=== PATIENT | male | born 1990 | race Caucasian/White ===

== ENCOUNTER 2017-07-04 00:12 | Inpatient (IN) | payer OTHER ==
[2017-07-04 01:08] LABS: ADD MAN DIFF? NO
[2017-07-04 01:11] LABS: ABNORMAL IP MESSAGE 1; BASOPHIL # 0.2 10^3/ul (0.0-0.1); BASOPHILS % 0.9 % (0.0-2.0); HEMATOCRIT 42.9 % (42.0-52.0); HEMOGLOBIN 14.1 g/dl (14.0-18.0); LYMPHOCYTES # 0.5 10^3/ul (0.8-2.9); MEAN CORPUSCULAR HEMOGLOBIN 28.4 pg (29.0-33.0); MEAN CORPUSCULAR HGB CONC 32.9 g/dl (32.0-37.0); MEAN CORPUSCULAR VOLUME 86.5 fl (82.0-101.0); MONOCYTE # 0.2 10^3/ul (0.3-0.9); MONOCYTES % 1.1 % (0.0-11.0); NEUTROPHIL # 15.1 10^3/ul (1.6-7.5); PLATELET COUNT 251 10^3/UL (140-415); POSITIVE DIFF @See below; RED BLOOD COUNT 4.96 10^6/ul (4.70-6.10); RED CELL DISTRIBUTION WIDTH 12.6 % (11.5-14.5)
[2017-07-04] MEDS: SODIUM CHLORIDE 0.9% 1L BAG IV* (01:14)
[2017-07-04] MEDS: LEVOFLOXACIN 750MG/D5W (PMX) 150 ML IVPB (01:14)
[2017-07-04 01:26] LABS: AADO2 Arterial 140.6 mmHg (7.0-24.0); Allen Test ACCEPTAB; Arterial Base Excess -2.3 mmol/L (-3.0-3); Arterial Blood Gas Oxygen Sat 91.2 mmHG (95.0-98.0); Arterial HCO3 20.6 mmol/L (22.0-26.0); Arterial MetHb 0.3 % (0.0-1.5); Arterial Total Hemglobin 14.6 g/dl (12.0-18.0); Arterial pCO2 30.6 mmhg (35-45); MODE NASAL CANNULA; Site Left Radial
[2017-07-04] MEDS: LEVALBUTEROL (NEB) 1.25 MG/0.5 ML AMP HHN (01:28)
[2017-07-04] MEDS: IPRATROPIUM (NEB) 0.5 MG/2.5 ML AMP HHN (01:28)
[2017-07-04 01:30] LABS: NEUTROPHILS % 94.7 % (39.0-77.0)
[2017-07-04 01:31] LABS: INR 1.63; PARTIAL THROMBOPLASTIN TIME 29.4 Sec (25.0-35.0); PROTIME 19.7 Sec (11.9-14.9); PT RATIO 1.5
[2017-07-04 01:35] LABS: ALANINE AMINOTRANSFERASE 23 IU/L (13-69); ALBUMIN 3.3 g/dl (3.3-4.9); ALBUMIN/GLOBULIN RATIO 1.37; ALKALINE PHOSPHATASE 56 IU/L (42-121); ANION GAP 13 (8-16); ASPARTATE AMINO TRANSFERASE 14 IU/L (15-46); BLOOD UREA NITROGEN 18 mg/dl (7-20); CALCIUM 8.5 mg/dl (8.4-10.2); CARBON DIOXIDE 29 mmol/L (21-31); CHLORIDE 95 mmol/L (97-110); CREATININE 0.79 mg/dl (0.61-1.24); GLUCOSE 123 mg/dl (70-220); POTASSIUM 5.3 mmol/L (3.5-5.1); SODIUM 132 mmol/L (135-144); TOTAL PROTEIN 5.7 g/dl (6.1-8.1)
[2017-07-04 01:50] LABS: TROPONIN-I < 0.012 ng/ml (0.000-0.120)
[2017-07-04 01:51] LABS: LACTIC ACID 3.4 mmol/L (0.5-2.0)
[2017-07-04] MEDS: morphine 4 MG/ML VIAL IV (02:06)
[2017-07-04 03:33] LABS: LACTIC ACID 1.8 mmol/L (0.5-2.0)
[2017-07-04 06:24] LABS: LACTIC ACID 2.3 mmol/L (0.5-2.0)
[2017-07-04] MEDS ORDERED: NACL 0.9% 3 ML SYG IV (07:00)
[2017-07-04] MEDS ORDERED: ONDANSETRON 4 MG INJ IV (07:00)
[2017-07-04] MEDS: morphine 2 MG INJ IV (07:31)
[2017-07-04] MEDS: LEVOFLOXACIN 500MG/D5W (PMX) 100 ML IVPB (07:31)
[2017-07-04] MEDS: ALBUTEROL/IPRATROPIUM (NEB) 3 ML AMP HHN ×3 (07:36→22:08)
[2017-07-04] MEDS: METHYLPREDNISOLONE 125 MG INJ IV ×2 (08:10→20:47)
[2017-07-04] MEDS: ENOXAPARIN 40 MG/0.4 ML SYG SC (08:13)
[2017-07-04 09:09] LABS: CREATINE KINASE 25 IU/L (23-200)
[2017-07-04 09:20] LABS: CK INDEX 1.7
[2017-07-04 09:24] LABS: CK-MB 0.42 ng/ml (0.0-2.4); TROPONIN-I < 0.012 ng/ml (0.000-0.120)
[2017-07-04 13:40] LABS: ADD UMIC NO; UR ASCORBIC ACID NEGATIVE (NEGATIVE); UR BILIRUBIN (Dip) NEGATIVE (NEGATIVE); UR BLOOD (Dip) NEGATIVE (NEGATIVE); UR CLARITY CLEAR (CLEAR); UR COLOR STRAW (YELLOW); UR GLUCOSE (Dip) NEGATIVE (NEGATIVE); UR KETONES (Dip) NEGATIVE (NEGATIVE); UR LEUKOCYTE ESTERASE (Dip) NEGATIVE Leu/ul (NEGATIVE); UR NITRITE (Dip) NEGATIVE (NEGATIVE); UR SPECIFIC GRAVITY (Dip) 1.004 (1.003-1.030); UR TOTAL PROTEIN (Dip) NEGATIVE (NEGATIVE); UR UROBILINOGEN (Dip) NEGATIVE (NEGATIVE)
[2017-07-04 14:41] LABS: CREATINE KINASE 25 IU/L (23-200)
[2017-07-04] MEDS: FUROSEMIDE 40 MG INJ IV (14:43)
[2017-07-04 14:46] LABS: LACTIC ACID 2.3 mmol/L (0.5-2.0)
[2017-07-04 14:54] LABS: CK INDEX 1.6
[2017-07-04] MEDS ORDERED: VANCOMYCIN IV PER PHARMACY XX (15:00)
[2017-07-04 15:02] LABS: TROPONIN-I < 0.012 ng/ml (0.000-0.120)
[2017-07-04] MEDS: CEFEPIME 2GM/50 ML (PMX) 50 ML IVPB ×2 (15:35→23:00)
[2017-07-04] MEDS: VANCOMYCIN 2 GM in SOD CHLORIDE 0.9% 500 ML IVPB (16:07)
[2017-07-04] MEDS: SALMETEROL/FLUTICASONE 250/50 INHA INH (20:47)
[2017-07-04 21:20] LABS: Allen Test ACCEPTAB; Arterial Base Excess -3.9 mmol/L (-3.0-3); Arterial Blood Gas Oxygen Sat 97.6 mmHG (95.0-98.0); Arterial COHb 0.3 % (0.0-3.0); Arterial Fraction of Oxyhgb 97.1 % (93.0-99.0); Arterial HCO3 19.7 mmol/L (22.0-26.0); Arterial MetHb 0.2 % (0.0-1.5); Arterial Total Hemglobin 12.8 g/dl (12.0-18.0); Arterial pCO2 31.8 mmhg (35-45); MODE HFNC; Site Right Radial
[2017-07-04] MEDS: VANCOMYCIN 1.25 GM in SOD CHLORIDE 0.9% 250 ML IVPB (23:47)
[2017-07-05] MEDS: GUAIFENESIN/CODEINE 5ML CUP PO ×2 (01:00→05:27)
[2017-07-05] MEDS: ALBUTEROL/IPRATROPIUM (NEB) 3 ML AMP HHN ×6 (01:14→20:14)
[2017-07-05] MEDS: FUROSEMIDE 40 MG INJ IV ×2 (05:27→17:28)
[2017-07-05 06:03] LABS: ABNORMAL IP MESSAGE 1; HEMATOCRIT 35.9 % (42.0-52.0); MEAN CORPUSCULAR HEMOGLOBIN 28.8 pg (29.0-33.0); MEAN CORPUSCULAR HGB CONC 33.4 g/dl (32.0-37.0); MEAN CORPUSCULAR VOLUME 86.3 fl (82.0-101.0); MEAN PLATELET VOLUME 9.6 fl (7.4-10.4); PLATELET COUNT 232 10^3/UL (140-415); POSITIVE DIFF @See below; RED BLOOD COUNT 4.16 10^6/ul (4.70-6.10); RED CELL DISTRIBUTION WIDTH 12.9 % (11.5-14.5)
[2017-07-05 06:03] LABS: WHITE BLOOD COUNT 16.1 10^3/ul (4.8-10.8)
[2017-07-05 06:39] LABS: ALANINE AMINOTRANSFERASE 21 IU/L (13-69); ALBUMIN 2.9 g/dl (3.3-4.9); ALBUMIN/GLOBULIN RATIO 1.11; ALKALINE PHOSPHATASE 59 IU/L (42-121); ANION GAP 11 (8-16); ASPARTATE AMINO TRANSFERASE 13 IU/L (15-46); BILIRUBIN,INDIRECT 0.3 mg/dl (0-1.1); BILIRUBIN,TOTAL 0.3 mg/dl (0.2-1.3); BLOOD UREA NITROGEN 19 mg/dl (7-20); CALCIUM 8.2 mg/dl (8.4-10.2); CARBON DIOXIDE 25 mmol/L (21-31); CHLORIDE 108 mmol/L (97-110); CHOL/HDL RATIO 5.2 RATIO; CHOLESTEROL 95 mg/dl (100-200); CREATININE 0.75 mg/dl (0.61-1.24); GLUCOSE 141 mg/dl (70-220); HDL CHOLESTEROL 18 mg/dl (28-63); LDL CHOLESTEROL,CALCULATED 48 mg/dl; MAGNESIUM 2.1 mg/dl (1.7-2.5); POTASSIUM 4.1 mmol/L (3.5-5.1); SODIUM 140 mmol/L (135-144); TOTAL PROTEIN 5.5 g/dl (6.1-8.1); TRIGLYCERIDES 143 mg/dl (0-149)
[2017-07-05 06:46] LABS: ADD MAN DIFF? YES
[2017-07-05 06:50] LABS: THYROID STIMULATING HORMONE 0.679 MIU/L (0.465-4.680)
[2017-07-05 07:54] LABS: AADO2 Arterial 330.5 mmHg (7.0-24.0); Allen Test ACCEPTAB; Arterial Base Excess -0.3 mmol/L (-3.0-3); Arterial Blood Gas Oxygen Sat 98.6 mmHG (95.0-98.0); Arterial COHb 0.3 % (0.0-3.0); Arterial HCO3 23.4 mmol/L (22.0-26.0); Arterial MetHb 0.3 % (0.0-1.5); Arterial Total Hemglobin 12.8 g/dl (12.0-18.0); Arterial pCO2 35.4 mmhg (35-45); MODE HFNC
[2017-07-05] MEDS: VANCOMYCIN 1.25 GM in SOD CHLORIDE 0.9% 250 ML IVPB ×2 (08:07→15:56)
[2017-07-05] MEDS: SALMETEROL/FLUTICASONE 250/50 INHA INH ×2 (08:10→20:55)
[2017-07-05] MEDS: METHYLPREDNISOLONE 125 MG INJ IV ×2 (08:10→20:55)
[2017-07-05] MEDS: ENOXAPARIN 40 MG/0.4 ML SYG SC (08:12)
[2017-07-05] MEDS: CEFEPIME 2GM/50 ML (PMX) 50 ML IVPB ×2 (08:15→20:56)
[2017-07-05 08:29] LABS: HEMOGLOBIN A1C 5.4 % (0-5.9)
[2017-07-05 10:38] LABS: BAND NEUTROPHILS #M 2.5 10^3/ul (0.0-0.6); BAND NEUTROPHILS % (M) 16 % (0-4); LYMPHOCYTES # 0.5 10^3/ul (0.8-2.9); LYMPHOCYTES #M 0.4 10^3/ul (0.8-2.9); LYMPHOCYTES % (M) 3 % (15-51); MONOCYTE # 0.2 10^3/ul (0.3-0.9); MONOCYTE #M 0.1 10^3/ul (0.3-0.9); MONOCYTES % (M) 1 % (0-11); SEG NEUT #M 13.3 10^3/ul (1.7-7.5); SEGMENTED NEUTROPHILS (M) % 80 % (39-77)
[2017-07-05 11:17] LABS: ADD MAN DIFF? NO
[2017-07-05 11:18] LABS: WHITE BLOOD COUNT 14.7 10^3/ul (4.8-10.8)
[2017-07-05 11:18] LABS: ABNORMAL IP MESSAGE 1; BASOPHIL # 0.1 10^3/ul (0.0-0.1); BASOPHILS % 0.5 % (0.0-2.0); HEMATOCRIT 35.3 % (42.0-52.0); HEMOGLOBIN 11.8 g/dl (14.0-18.0); LYMPHOCYTES # 0.4 10^3/ul (0.8-2.9); LYMPHOCYTES % 2.5 % (15.0-51.0); MEAN CORPUSCULAR HEMOGLOBIN 28.6 pg (29.0-33.0); MEAN CORPUSCULAR HGB CONC 33.4 g/dl (32.0-37.0); MEAN CORPUSCULAR VOLUME 85.7 fl (82.0-101.0); MEAN PLATELET VOLUME 9.1 fl (7.4-10.4); MONOCYTE # 0.3 10^3/ul (0.3-0.9); MONOCYTES % 1.9 % (0.0-11.0); NEUTROPHIL # 13.9 10^3/ul (1.6-7.5); PLATELET COUNT 222 10^3/UL (140-415); POSITIVE DIFF @See below; RED BLOOD COUNT 4.12 10^6/ul (4.70-6.10); RED CELL DISTRIBUTION WIDTH 12.9 % (11.5-14.5)
[2017-07-05 12:15] LABS: ANION GAP 11 (8-16); BLOOD UREA NITROGEN 20 mg/dl (7-20); CALCIUM 8.2 mg/dl (8.4-10.2); CARBON DIOXIDE 26 mmol/L (21-31); CHLORIDE 107 mmol/L (97-110); CREATININE 0.75 mg/dl (0.61-1.24); GLUCOSE 157 mg/dl (70-220); POTASSIUM 4.2 mmol/L (3.5-5.1); SODIUM 140 mmol/L (135-144)
[2017-07-05 12:24] LABS: ANISOCYTOSIS 1+ (0-0); BAND NEUTROPHILS #M 4.4 10^3/ul (0.0-0.6); BAND NEUTROPHILS % (M) 30 % (0-4); LYMPHOCYTES #M 0.4 10^3/ul (0.8-2.9); LYMPHOCYTES % (M) 3 % (15-51); MICROCYTOSIS 1+ (0-0); MONOCYTE #M 0.2 10^3/ul (0.3-0.9); MONOCYTES % (M) 2 % (0-11); PLATELET ESTIMATE NORMAL; POIKILOCYTOSIS 1+ (0-0); SEG NEUT #M 10.2 10^3/ul (1.6-7.5); SEGMENTED NEUTROPHILS (M) % 65 % (39-77); SMUDGE%M 1 % (0-0)
[2017-07-05 15:45] LABS: VANCOMYCIN,TROUGH 9.4 ug/ml (10.0-20.0)
[2017-07-06] MEDS: ACETAMINOPHEN 325 MG TAB PO ×2 (00:13→19:47)
[2017-07-06] MEDS: GUAIFENESIN/CODEINE 5ML CUP PO ×2 (00:13→19:47)
[2017-07-06] MEDS: VANCOMYCIN 1.5 GM in SOD CHLORIDE 0.9% 250 ML IVPB ×3 (00:14→16:34)
[2017-07-06] MEDS: ALBUTEROL/IPRATROPIUM (NEB) 3 ML AMP HHN ×5 (01:35→19:33)
[2017-07-06] MEDS: morphine 2 MG INJ IV (02:19)
[2017-07-06] MEDS: FUROSEMIDE 40 MG INJ IV ×2 (05:54→17:55)
[2017-07-06 08:41] LABS: ADD MAN DIFF? NO
[2017-07-06 08:49] LABS: WHITE BLOOD COUNT 15.8 10^3/ul (4.8-10.8)
[2017-07-06 08:49] LABS: BASOPHILS % 0.3 % (0.0-2.0); HEMATOCRIT 37.8 % (42.0-52.0); HEMOGLOBIN 12.4 g/dl (14.0-18.0); LYMPHOCYTES # 0.7 10^3/ul (0.8-2.9); LYMPHOCYTES % 4.4 % (15.0-51.0); MEAN CORPUSCULAR HEMOGLOBIN 28.5 pg (29.0-33.0); MEAN CORPUSCULAR HGB CONC 32.8 g/dl (32.0-37.0); MEAN CORPUSCULAR VOLUME 86.9 fl (82.0-101.0); MONOCYTE # 0.5 10^3/ul (0.3-0.9); NEUTROPHIL # 14.6 10^3/ul (1.6-7.5); NEUTROPHILS % 91.9 % (39.0-77.0); PLATELET COUNT 249 10^3/UL (140-415); RED BLOOD COUNT 4.35 10^6/ul (4.70-6.10)
[2017-07-06] MEDS: METHYLPREDNISOLONE 125 MG INJ IV ×2 (08:50→21:00)
[2017-07-06] MEDS: SALMETEROL/FLUTICASONE 250/50 INHA INH ×2 (08:50→21:00)
[2017-07-06] MEDS: ENOXAPARIN 40 MG/0.4 ML SYG SC (08:55)
[2017-07-06] MEDS: CEFEPIME 2GM/50 ML (PMX) 50 ML IVPB (08:56)
[2017-07-06 08:58] LABS: AADO2 Arterial 227.7 mmHg (7.0-24.0); Allen Test ACCEPTAB; Arterial Base Excess 0.1 mmol/L (-3.0-3); Arterial Blood Gas Oxygen Sat 96.8 mmHG (95.0-98.0); Arterial COHb 0.3 % (0.0-3.0); Arterial Fraction of Oxyhgb 96.4 % (93.0-99.0); Arterial HCO3 23.8 mmol/L (22.0-26.0); Arterial MetHb 0.1 % (0.0-1.5); Arterial pCO2 35.7 mmhg (35-45); MODE HFNC; Site Right Radial
[2017-07-06 10:26] LABS: ANION GAP 14 (8-16); BLOOD UREA NITROGEN 26 mg/dl (7-20); CALCIUM 8.6 mg/dl (8.4-10.2); CARBON DIOXIDE 28 mmol/L (21-31); CHLORIDE 104 mmol/L (97-110); GLUCOSE 141 mg/dl (70-220); POTASSIUM 4.2 mmol/L (3.5-5.1); SODIUM 142 mmol/L (135-144)
[2017-07-06] MEDS: CEFTRIAXONE 2 GM/50 ML (PMX) 50 ML IVPB (12:50)
[2017-07-06] MEDS ORDERED: ALBUTEROL/IPRATROPIUM (NEB) 3 ML AMP HHN (14:00)
[2017-07-07] MEDS: VANCOMYCIN 1.5 GM in SOD CHLORIDE 0.9% 250 ML IVPB ×2 (00:11→10:01)
[2017-07-07] MEDS: ALBUTEROL/IPRATROPIUM (NEB) 3 ML AMP HHN ×4 (01:32→19:51)
[2017-07-07] MEDS: FUROSEMIDE 40 MG INJ IV ×2 (06:23→17:30)
[2017-07-07 07:20] LABS: AADO2 Arterial 158.8 mmHg (7.0-24.0); Allen Test ACCEPTAB; Arterial Base Excess 4.8 mmol/L (-3.0-3); Arterial Blood Gas Oxygen Sat 95.6 mmHG (95.0-98.0); Arterial COHb 0.2 % (0.0-3.0); Arterial Fraction of Oxyhgb 95.2 % (93.0-99.0); Arterial HCO3 29.3 mmol/L (22.0-26.0); Arterial MetHb 0.2 % (0.0-1.5); Arterial Total Hemglobin 14.4 g/dl (12.0-18.0); Arterial pCO2 42.8 mmhg (35-45); MODE HFNC; Site Right Radial
[2017-07-07 07:35] LABS: ADD MAN DIFF? NO
[2017-07-07 07:41] LABS: BASOPHILS % 0.1 % (0.0-2.0); HEMATOCRIT 38.6 % (42.0-52.0); HEMOGLOBIN 12.8 g/dl (14.0-18.0); LYMPHOCYTES # 1.3 10^3/ul (0.8-2.9); LYMPHOCYTES % 8.1 % (15.0-51.0); MEAN CORPUSCULAR HEMOGLOBIN 28.3 pg (29.0-33.0); MEAN CORPUSCULAR HGB CONC 33.2 g/dl (32.0-37.0); MEAN CORPUSCULAR VOLUME 85.4 fl (82.0-101.0); MEAN PLATELET VOLUME 9.2 fl (7.4-10.4); MONOCYTES % 6.2 % (0.0-11.0); NEUTROPHILS % 84.5 % (39.0-77.0); PLATELET COUNT 238 10^3/UL (140-415); RED BLOOD COUNT 4.52 10^6/ul (4.70-6.10); RED CELL DISTRIBUTION WIDTH 13.2 % (11.5-14.5)
[2017-07-07 07:41] LABS: WHITE BLOOD COUNT 15.4 10^3/ul (4.8-10.8)
[2017-07-07 08:03] LABS: ANION GAP 13 (8-16); BLOOD UREA NITROGEN 24 mg/dl (7-20); CALCIUM 8.5 mg/dl (8.4-10.2); CARBON DIOXIDE 32 mmol/L (21-31); CHLORIDE 103 mmol/L (97-110); CREATININE 0.76 mg/dl (0.61-1.24); GLUCOSE 119 mg/dl (70-220); MAGNESIUM 2.4 mg/dl (1.7-2.5); PHOSPHORUS 3.8 mg/dl (2.5-4.9); SODIUM 144 mmol/L (135-144)
[2017-07-07 08:06] LABS: VANCOMYCIN,TROUGH 14.4 ug/ml (10.0-20.0)
[2017-07-07 08:50] LABS: HEPATITIS C VIRAL ANTIBODY NEGATIVE (NEGATIVE)
[2017-07-07 08:51] LABS: HEPATITIS B SURFACE ANTIBODY NEGATIVE (NEGATIVE)
[2017-07-07 08:53] LABS: HIV 1&2 ANTIBODY NEGATIVE (NEGATIVE)
[2017-07-07] MEDS: METHYLPREDNISOLONE 125 MG INJ IV ×2 (09:56→21:15)
[2017-07-07] MEDS: ENOXAPARIN 40 MG/0.4 ML SYG SC (09:57)
[2017-07-07] MEDS: SALMETEROL/FLUTICASONE 250/50 INHA INH ×2 (10:01→21:15)
[2017-07-07] MEDS: CEFTRIAXONE 2 GM/50 ML (PMX) 50 ML IVPB (12:57)
[2017-07-07] MEDS: GUAIFENESIN/CODEINE 5ML CUP PO ×2 (17:31→21:32)
[2017-07-07] MEDS: morphine 2 MG INJ IV (21:32)
[2017-07-08] MEDS: GUAIFENESIN/CODEINE 5ML CUP PO (01:00)
[2017-07-08] MEDS: ALBUTEROL/IPRATROPIUM (NEB) 3 ML AMP HHN ×4 (01:34→20:04)
[2017-07-08 05:05] LABS: WHITE BLOOD COUNT 12.7 10^3/ul (4.8-10.8)
[2017-07-08 05:05] LABS: ABNORMAL IP MESSAGE 1; ADD MAN DIFF? NO; BASOPHIL # 0.1 10^3/ul (0.0-0.1); BASOPHILS % 0.6 % (0.0-2.0); HEMATOCRIT 39.4 % (42.0-52.0); HEMOGLOBIN 12.9 g/dl (14.0-18.0); LYMPHOCYTES # 1.9 10^3/ul (0.8-2.9); LYMPHOCYTES % 14.8 % (15.0-51.0); MEAN CORPUSCULAR HGB CONC 32.7 g/dl (32.0-37.0); MEAN CORPUSCULAR VOLUME 85.5 fl (82.0-101.0); MONOCYTE # 1.5 10^3/ul (0.3-0.9); MONOCYTES % 11.9 % (0.0-11.0); NEUTROPHIL # 8.5 10^3/ul (1.6-7.5); NEUTROPHILS % 67.1 % (39.0-77.0); PLATELET COUNT 242 10^3/UL (140-415); POSITIVE DIFF @See below; RED BLOOD COUNT 4.61 10^6/ul (4.70-6.10)
[2017-07-08 05:32] LABS: ALANINE AMINOTRANSFERASE 28 IU/L (13-69); ALBUMIN 2.8 g/dl (3.3-4.9); ALBUMIN/GLOBULIN RATIO 1.12; ALKALINE PHOSPHATASE 52 IU/L (42-121); ANION GAP 11 (8-16); ASPARTATE AMINO TRANSFERASE 13 IU/L (15-46); BILIRUBIN,INDIRECT 0.1 mg/dl (0-1.1); BILIRUBIN,TOTAL 0.1 mg/dl (0.2-1.3); BLOOD UREA NITROGEN 24 mg/dl (7-20); CALCIUM 8.5 mg/dl (8.4-10.2); CARBON DIOXIDE 33 mmol/L (21-31); CHLORIDE 101 mmol/L (97-110); GLUCOSE 102 mg/dl (70-220); POTASSIUM 4.2 mmol/L (3.5-5.1); SODIUM 141 mmol/L (135-144); TOTAL PROTEIN 5.3 g/dl (6.1-8.1)
[2017-07-08 05:40] LABS: B-TYPE NATRIURETIC PEPTIDE 790 PG/ML (0-125)
[2017-07-08 05:46] LABS: PHOSPHORUS 4.4 mg/dl (2.5-4.9)
[2017-07-08 05:46] LABS: MAGNESIUM 2.2 mg/dl (1.7-2.5)
[2017-07-08] MEDS: FUROSEMIDE 40 MG INJ IV (06:15)
[2017-07-08] MEDS: morphine 2 MG INJ IV ×2 (06:30→21:09)
[2017-07-08] MEDS: METHYLPREDNISOLONE 125 MG INJ IV ×2 (09:53→21:09)
[2017-07-08] MEDS: SALMETEROL/FLUTICASONE 250/50 INHA INH ×2 (09:54→21:09)
[2017-07-08] MEDS: ENOXAPARIN 40 MG/0.4 ML SYG SC (10:02)
[2017-07-08] MEDS: CEFTRIAXONE 2 GM/50 ML (PMX) 50 ML IVPB (12:00)
[2017-07-08 12:41] LABS: NIL 0.02 IU/mL; QUANTIFERON(R)-TB GOLD INDETERMINATE (NEGATIVE)
[2017-07-08 13:26] LABS: ANCA SCREEN NEGATIVE (NEGATIVE)
[2017-07-08 13:48] LABS: ANISOCYTOSIS 1+ (0-0); BAND NEUTROPHILS #M 0.8 10^3/ul (0.0-0.6); BAND NEUTROPHILS % (M) 7 % (0-4); HYPOCHROMASIA 1+ (0-0); LYMPHOCYTES #M 2.5 10^3/ul (0.8-2.9); LYMPHOCYTES % (M) 20 % (15-51); MONOCYTE #M 1.3 10^3/ul (0.3-0.9); MONOCYTES % (M) 11 % (0-11); PLATELET ESTIMATE NORMAL; POLYCHROMASIA 2+ (0-0); REACTIVE LYMPHOCYTES #M 0.3 10^3/ul (0.0-0.0); REACTIVE LYMPHOCYTES% (M) 3 % (0-0); SEG NEUT #M 7.2 10^3/ul (1.6-7.5); SEGMENTED NEUTROPHILS (M) % 56 % (39-77); SMUDGE%M 2 % (0-0)
[2017-07-08 18:01] LABS: MYCOPLASMA PNEUMONIAE AB (IGG) < or = 0.90
[2017-07-08 18:41] LABS: MYELOPEROXIDASE ANTIBODY <1.0 AI; PROTEINASE-3 ANTIBODY <1.0 AI
[2017-07-09] MEDS: ALBUTEROL/IPRATROPIUM (NEB) 3 ML AMP HHN ×5 (01:18→20:19)
[2017-07-09 05:51] LABS: ADD MAN DIFF? NO
[2017-07-09 06:10] LABS: WHITE BLOOD COUNT 14.9 10^3/ul (4.8-10.8)
[2017-07-09 06:10] LABS: ABNORMAL IP MESSAGE 1; BASOPHIL # 0.1 10^3/ul (0.0-0.1); BASOPHILS % 0.3 % (0.0-2.0); EOSINOPHILS % 0.1 % (0.0-7.0); HEMATOCRIT 41.3 % (42.0-52.0); HEMOGLOBIN 13.6 g/dl (14.0-18.0); LYMPHOCYTES # 1.8 10^3/ul (0.8-2.9); LYMPHOCYTES % 12.1 % (15.0-51.0); MEAN CORPUSCULAR HEMOGLOBIN 28.3 pg (29.0-33.0); MEAN CORPUSCULAR HGB CONC 32.9 g/dl (32.0-37.0); MEAN CORPUSCULAR VOLUME 85.9 fl (82.0-101.0); MEAN PLATELET VOLUME 9.4 fl (7.4-10.4); MONOCYTE # 1.2 10^3/ul (0.3-0.9); NEUTROPHIL # 10.7 10^3/ul (1.6-7.5); NEUTROPHILS % 71.6 % (39.0-77.0); PLATELET COUNT 267 10^3/UL (140-415); POSITIVE DIFF @See below; RED BLOOD COUNT 4.81 10^6/ul (4.70-6.10); RED CELL DISTRIBUTION WIDTH 12.8 % (11.5-14.5)
[2017-07-09 06:29] LABS: ALANINE AMINOTRANSFERASE 34 IU/L (13-69); ALBUMIN 2.7 g/dl (3.3-4.9); ALBUMIN/GLOBULIN RATIO 1.22; ALKALINE PHOSPHATASE 52 IU/L (42-121); ANION GAP 12 (8-16); ASPARTATE AMINO TRANSFERASE 12 IU/L (15-46); BILIRUBIN,INDIRECT 0.2 mg/dl (0-1.1); BILIRUBIN,TOTAL 0.2 mg/dl (0.2-1.3); BLOOD UREA NITROGEN 20 mg/dl (7-20); CALCIUM 8.6 mg/dl (8.4-10.2); CARBON DIOXIDE 29 mmol/L (21-31); CHLORIDE 103 mmol/L (97-110); CREATININE 0.57 mg/dl (0.61-1.24); GLUCOSE 107 mg/dl (70-220); MAGNESIUM 2.1 mg/dl (1.7-2.5); POTASSIUM 4.5 mmol/L (3.5-5.1); SODIUM 139 mmol/L (135-144); TOTAL PROTEIN 4.9 g/dl (6.1-8.1)
[2017-07-09 06:30] LABS: PHOSPHORUS 5.1 mg/dl (2.5-4.9)
[2017-07-09 06:35] LABS: B-TYPE NATRIURETIC PEPTIDE 183 PG/ML (0-125)
[2017-07-09] MEDS ORDERED: FUROSEMIDE 40 MG INJ (07:40)
[2017-07-09] MEDS: FUROSEMIDE 40 MG INJ IV (07:48)
[2017-07-09] MEDS: METHYLPREDNISOLONE 125 MG INJ IV ×2 (07:49→21:13)
[2017-07-09] MEDS: ENOXAPARIN 40 MG/0.4 ML SYG SC (07:50)
[2017-07-09] MEDS: SALMETEROL/FLUTICASONE 250/50 INHA INH ×2 (07:59→23:26)
[2017-07-09] MEDS: morphine 2 MG INJ IV (08:46)
[2017-07-09] MEDS: CEFTRIAXONE 2 GM/50 ML (PMX) 50 ML IVPB (12:06)
[2017-07-09] MEDS: morphine LIQ (10 MG/5 ML) CUP PO (23:27)
[2017-07-10] MEDS: ALBUTEROL/IPRATROPIUM (NEB) 3 ML AMP HHN ×4 (01:51→19:48)
[2017-07-10 06:39] LABS: ADD MAN DIFF? NO
[2017-07-10 06:51] LABS: WHITE BLOOD COUNT 18.3 10^3/ul (4.8-10.8)
[2017-07-10 06:51] LABS: ABNORMAL IP MESSAGE 1; BASOPHIL # 0.1 10^3/ul (0.0-0.1); BASOPHILS % 0.7 % (0.0-2.0); EOSINOPHILS % 0.1 % (0.0-7.0); HEMATOCRIT 43.2 % (42.0-52.0); HEMOGLOBIN 14.2 g/dl (14.0-18.0); LYMPHOCYTES # 2.4 10^3/ul (0.8-2.9); MEAN CORPUSCULAR HEMOGLOBIN 28.3 pg (29.0-33.0); MEAN CORPUSCULAR HGB CONC 32.9 g/dl (32.0-37.0); MEAN CORPUSCULAR VOLUME 86.1 fl (82.0-101.0); MEAN PLATELET VOLUME 9.4 fl (7.4-10.4); MONOCYTE # 1.1 10^3/ul (0.3-0.9); MONOCYTES % 6.1 % (0.0-11.0); NEUTROPHIL # 13.2 10^3/ul (1.6-7.5); NEUTROPHILS % 72.3 % (39.0-77.0); PLATELET COUNT 284 10^3/UL (140-415); RED BLOOD COUNT 5.02 10^6/ul (4.70-6.10); RED CELL DISTRIBUTION WIDTH 12.9 % (11.5-14.5)
[2017-07-10 07:16] LABS: ALANINE AMINOTRANSFERASE 35 IU/L (13-69); ALBUMIN 3.1 g/dl (3.3-4.9); ALBUMIN/GLOBULIN RATIO 1.24; ALKALINE PHOSPHATASE 58 IU/L (42-121); ANION GAP 12 (8-16); ASPARTATE AMINO TRANSFERASE 12 IU/L (15-46); BILIRUBIN,INDIRECT 0.3 mg/dl (0-1.1); BILIRUBIN,TOTAL 0.3 mg/dl (0.2-1.3); BLOOD UREA NITROGEN 21 mg/dl (7-20); CALCIUM 8.6 mg/dl (8.4-10.2); CARBON DIOXIDE 31 mmol/L (21-31); CHLORIDE 101 mmol/L (97-110); CREATININE 0.68 mg/dl (0.61-1.24); GLUCOSE 95 mg/dl (70-220); POTASSIUM 4.8 mmol/L (3.5-5.1); SODIUM 139 mmol/L (135-144); TOTAL PROTEIN 5.6 g/dl (6.1-8.1)
[2017-07-10 07:18] LABS: B-TYPE NATRIURETIC PEPTIDE 55 PG/ML (0-125)
[2017-07-10 07:41] LABS: PHOSPHORUS 5.1 mg/dl (2.5-4.9)
[2017-07-10 07:41] LABS: MAGNESIUM 2.3 mg/dl (1.7-2.5)
[2017-07-10] MEDS: SALMETEROL/FLUTICASONE 250/50 INHA INH ×2 (09:01→20:15)
[2017-07-10] MEDS: METHYLPREDNISOLONE 125 MG INJ IV (09:01)
[2017-07-10] MEDS: FUROSEMIDE 40 MG INJ IV (09:02)
[2017-07-10] MEDS: ENOXAPARIN 40 MG/0.4 ML SYG SC (09:03)
[2017-07-10] MEDS: CEFTRIAXONE 2 GM/50 ML (PMX) 50 ML IVPB (13:13)
[2017-07-10] MEDS: ACETAMINOPHEN 325 MG TAB PO (20:22)
[2017-07-10] MEDS: GUAIFENESIN/CODEINE 5ML CUP PO (20:22)
[2017-07-11] MEDS: ALBUTEROL/IPRATROPIUM (NEB) 3 ML AMP HHN ×4 (01:03→20:11)
[2017-07-11 06:27] LABS: ADD MAN DIFF? NO
[2017-07-11 06:32] LABS: WHITE BLOOD COUNT 15.7 10^3/ul (4.8-10.8)
[2017-07-11 06:32] LABS: ABNORMAL IP MESSAGE 1; BASOPHIL # 0.1 10^3/ul (0.0-0.1); BASOPHILS % 0.5 % (0.0-2.0); EOSINOPHILS # 0.2 10^3/ul (0.0-0.5); HEMATOCRIT 42.8 % (42.0-52.0); HEMOGLOBIN 14.2 g/dl (14.0-18.0); LYMPHOCYTES # 3.7 10^3/ul (0.8-2.9); LYMPHOCYTES % 23.5 % (15.0-51.0); MEAN CORPUSCULAR HEMOGLOBIN 28.5 pg (29.0-33.0); MEAN CORPUSCULAR HGB CONC 33.2 g/dl (32.0-37.0); MEAN CORPUSCULAR VOLUME 85.9 fl (82.0-101.0); MEAN PLATELET VOLUME 9.3 fl (7.4-10.4); MONOCYTE # 0.9 10^3/ul (0.3-0.9); MONOCYTES % 5.9 % (0.0-11.0); NEUTROPHIL # 9.8 10^3/ul (1.6-7.5); NEUTROPHILS % 62.3 % (39.0-77.0); PLATELET COUNT 234 10^3/UL (140-415); POSITIVE DIFF @See below; RED BLOOD COUNT 4.98 10^6/ul (4.70-6.10); RED CELL DISTRIBUTION WIDTH 12.9 % (11.5-14.5)
[2017-07-11 06:48] LABS: ALANINE AMINOTRANSFERASE 31 IU/L (13-69); ALBUMIN 2.7 g/dl (3.3-4.9); ALBUMIN/GLOBULIN RATIO 1.22; ALKALINE PHOSPHATASE 52 IU/L (42-121); ANION GAP 8 (8-16); ASPARTATE AMINO TRANSFERASE 10 IU/L (15-46); BILIRUBIN,INDIRECT 0.2 mg/dl (0-1.1); BILIRUBIN,TOTAL 0.2 mg/dl (0.2-1.3); BLOOD UREA NITROGEN 21 mg/dl (7-20); CALCIUM 8.3 mg/dl (8.4-10.2); CARBON DIOXIDE 32 mmol/L (21-31); CHLORIDE 103 mmol/L (97-110); CREATININE 0.66 mg/dl (0.61-1.24); GLUCOSE 78 mg/dl (70-220); POTASSIUM 3.9 mmol/L (3.5-5.1); SODIUM 139 mmol/L (135-144); TOTAL PROTEIN 4.9 g/dl (6.1-8.1)
[2017-07-11 06:56] LABS: B-TYPE NATRIURETIC PEPTIDE 47 PG/ML (0-125)
[2017-07-11 07:28] LABS: PHOSPHORUS 4.6 mg/dl (2.5-4.9)
[2017-07-11 07:28] LABS: MAGNESIUM 2.2 mg/dl (1.7-2.5)
[2017-07-11] MEDS: SALMETEROL/FLUTICASONE 250/50 INHA INH ×2 (08:41→21:05)
[2017-07-11] MEDS: METHYLPREDNISOLONE 40 MG INJ IV (08:41)
[2017-07-11] MEDS: FUROSEMIDE 40 MG TAB PO (08:42)
[2017-07-11] MEDS: ENOXAPARIN 40 MG/0.4 ML SYG SC (08:49)
[2017-07-11] MEDS: CEFTRIAXONE 2 GM/50 ML (PMX) 50 ML IVPB (11:29)
[2017-07-11 12:51] LABS: PROCALCITONIN 1.27 ng/mL (<0.10)
[2017-07-12] MEDS: ALBUTEROL/IPRATROPIUM (NEB) 3 ML AMP HHN ×4 (01:31→20:51)
[2017-07-12 06:52] LABS: ADD MAN DIFF? NO
[2017-07-12 06:55] LABS: BASOPHIL # 0.1 10^3/ul (0.0-0.1); BASOPHILS % 0.4 % (0.0-2.0); EOSINOPHILS # 0.1 10^3/ul (0.0-0.5); EOSINOPHILS % 0.8 % (0.0-7.0); HEMATOCRIT 41.5 % (42.0-52.0); HEMOGLOBIN 13.6 g/dl (14.0-18.0); LYMPHOCYTES # 3.1 10^3/ul (0.8-2.9); MEAN CORPUSCULAR HEMOGLOBIN 28.3 pg (29.0-33.0); MEAN CORPUSCULAR HGB CONC 32.8 g/dl (32.0-37.0); MEAN CORPUSCULAR VOLUME 86.3 fl (82.0-101.0); MEAN PLATELET VOLUME 9.1 fl (7.4-10.4); MONOCYTE # 0.8 10^3/ul (0.3-0.9); MONOCYTES % 5.2 % (0.0-11.0); NEUTROPHIL # 10.6 10^3/ul (1.6-7.5); NEUTROPHILS % 69.7 % (39.0-77.0); PLATELET COUNT 248 10^3/UL (140-415); RED BLOOD COUNT 4.81 10^6/ul (4.70-6.10); RED CELL DISTRIBUTION WIDTH 12.9 % (11.5-14.5)
[2017-07-12 06:55] LABS: WHITE BLOOD COUNT 15.2 10^3/ul (4.8-10.8)
[2017-07-12 07:07] LABS: ANION GAP 13 (8-16); BLOOD UREA NITROGEN 18 mg/dl (7-20); CALCIUM 8.3 mg/dl (8.4-10.2); CARBON DIOXIDE 28 mmol/L (21-31); CHLORIDE 104 mmol/L (97-110); CREATININE 0.63 mg/dl (0.61-1.24); GLUCOSE 78 mg/dl (70-220); POTASSIUM 3.9 mmol/L (3.5-5.1); SODIUM 141 mmol/L (135-144)
[2017-07-12 07:23] LABS: MAGNESIUM 2.1 mg/dl (1.7-2.5)
[2017-07-12 07:23] LABS: PHOSPHORUS 4.6 mg/dl (2.5-4.9)
[2017-07-12] MEDS: METHYLPREDNISOLONE 40 MG INJ IV (08:40)
[2017-07-12] MEDS: SALMETEROL/FLUTICASONE 250/50 INHA INH ×2 (08:41→21:00)
[2017-07-12] MEDS: FUROSEMIDE 40 MG TAB PO (08:41)
[2017-07-12] MEDS: ENOXAPARIN 40 MG/0.4 ML SYG SC (08:46)
[2017-07-12] MEDS: CEFTRIAXONE 2 GM/50 ML (PMX) 50 ML IVPB (11:20)
[2017-07-12] MEDS: BUDESONIDE (NEB) 0.5MG/2ML AMP HHN ×2 (13:00→20:59)
[2017-07-13] MEDS: ALBUTEROL/IPRATROPIUM (NEB) 3 ML AMP HHN ×4 (02:09→20:08)
[2017-07-13 07:06] LABS: ADD MAN DIFF? NO
[2017-07-13 07:08] LABS: BASOPHILS % 0.1 % (0.0-2.0); EOSINOPHILS # 0.1 10^3/ul (0.0-0.5); EOSINOPHILS % 0.6 % (0.0-7.0); HEMATOCRIT 40.9 % (42.0-52.0); HEMOGLOBIN 13.4 g/dl (14.0-18.0); LYMPHOCYTES # 2.8 10^3/ul (0.8-2.9); LYMPHOCYTES % 19.9 % (15.0-51.0); MEAN CORPUSCULAR HEMOGLOBIN 28.2 pg (29.0-33.0); MEAN CORPUSCULAR HGB CONC 32.8 g/dl (32.0-37.0); MEAN CORPUSCULAR VOLUME 85.9 fl (82.0-101.0); MEAN PLATELET VOLUME 9.4 fl (7.4-10.4); MONOCYTE # 0.8 10^3/ul (0.3-0.9); MONOCYTES % 5.6 % (0.0-11.0); NEUTROPHIL # 10.2 10^3/ul (1.6-7.5); NEUTROPHILS % 71.6 % (39.0-77.0); PLATELET COUNT 265 10^3/UL (140-415); RED BLOOD COUNT 4.76 10^6/ul (4.70-6.10)
[2017-07-13 07:08] LABS: WHITE BLOOD COUNT 14.3 10^3/ul (4.8-10.8)
[2017-07-13 07:34] LABS: ANION GAP 8 (8-16); BLOOD UREA NITROGEN 23 mg/dl (7-20); CALCIUM 8.5 mg/dl (8.4-10.2); CARBON DIOXIDE 29 mmol/L (21-31); CHLORIDE 107 mmol/L (97-110); CREATININE 0.65 mg/dl (0.61-1.24); GLUCOSE 80 mg/dl (70-220); POTASSIUM 4.1 mmol/L (3.5-5.1); SODIUM 140 mmol/L (135-144)
[2017-07-13 07:36] LABS: PHOSPHORUS 4.7 mg/dl (2.5-4.9)
[2017-07-13 07:36] LABS: MAGNESIUM 2.1 mg/dl (1.7-2.5)
[2017-07-13] MEDS: BUDESONIDE (NEB) 0.5MG/2ML AMP HHN ×3 (08:50→20:21)
[2017-07-13] MEDS: SALMETEROL/FLUTICASONE 250/50 INHA INH ×2 (09:47→21:01)
[2017-07-13] MEDS: METHYLPREDNISOLONE 40 MG INJ IV (09:48)
[2017-07-13] MEDS: ENOXAPARIN 40 MG/0.4 ML SYG SC (09:51)
[2017-07-13] MEDS: CEFTRIAXONE 2 GM/50 ML (PMX) 50 ML IVPB (12:22)
[2017-07-14] MEDS: ALBUTEROL/IPRATROPIUM (NEB) 3 ML AMP HHN ×3 (01:30→14:00)
[2017-07-14] MEDS: METHYLPREDNISOLONE 40 MG INJ IV (09:00)
[2017-07-14] MEDS: SALMETEROL/FLUTICASONE 250/50 INHA INH (09:02)
[2017-07-14] MEDS: ENOXAPARIN 40 MG/0.4 ML SYG SC (09:03)
[2017-07-14] MEDS: BUDESONIDE (NEB) 0.5MG/2ML AMP HHN (09:37)
[2017-07-14 10:17] LABS: ADD MAN DIFF? NO
[2017-07-14 10:22] LABS: WHITE BLOOD COUNT 16.7 10^3/ul (4.8-10.8)
[2017-07-14 10:22] LABS: BASOPHILS % 0.2 % (0.0-2.0); EOSINOPHILS # 0.1 10^3/ul (0.0-0.5); EOSINOPHILS % 0.4 % (0.0-7.0); HEMATOCRIT 40.8 % (42.0-52.0); HEMOGLOBIN 13.2 g/dl (14.0-18.0); LYMPHOCYTES # 2.5 10^3/ul (0.8-2.9); LYMPHOCYTES % 14.9 % (15.0-51.0); MEAN CORPUSCULAR HEMOGLOBIN 28.3 pg (29.0-33.0); MEAN CORPUSCULAR HGB CONC 32.4 g/dl (32.0-37.0); MEAN CORPUSCULAR VOLUME 87.6 fl (82.0-101.0); MEAN PLATELET VOLUME 9.4 fl (7.4-10.4); MONOCYTE # 1.1 10^3/ul (0.3-0.9); MONOCYTES % 6.8 % (0.0-11.0); NEUTROPHIL # 12.7 10^3/ul (1.6-7.5); NEUTROPHILS % 76.2 % (39.0-77.0); PLATELET COUNT 289 10^3/UL (140-415); RED BLOOD COUNT 4.66 10^6/ul (4.70-6.10); RED CELL DISTRIBUTION WIDTH 13.1 % (11.5-14.5)
[2017-07-14] MEDS: ACETAMINOPHEN 325 MG TAB PO (10:47)
[2017-07-14 10:52] LABS: ANION GAP 9 (8-16); BLOOD UREA NITROGEN 22 mg/dl (7-20); CALCIUM 8.4 mg/dl (8.4-10.2); CARBON DIOXIDE 26 mmol/L (21-31); CHLORIDE 110 mmol/L (97-110); CREATININE 0.57 mg/dl (0.61-1.24); GLUCOSE 79 mg/dl (70-220); PHOSPHORUS 4.2 mg/dl (2.5-4.9); POTASSIUM 3.8 mmol/L (3.5-5.1); SODIUM 141 mmol/L (135-144)
[2017-07-14] MEDS: CEFTRIAXONE 2 GM/50 ML (PMX) 50 ML IVPB (11:55)
== END 2017-07-14 16:11 | disposition home or self-care (01) | DRG 871 ==
LOC: ICU 06:00 → MS4 07-09 17:45 → E/R 00:12 → MS4 02:03 → ICU 13:16
DX: A40.3 Sepsis due to Streptococcus pneumoniae (principal); I50.43 Acute on chronic combined systolic (congestive) and diastolic (congestive) heart failure; J18.9 Pneumonia, unspecified organism; J96.01 Acute respiratory failure with hypoxia; J44.1 Chronic obstructive pulmonary disease with (acute) exacerbation; E87.2 Acidosis; J44.0 Chronic obstructive pulmonary disease with (acute) lower respiratory infection; I42.9 Cardiomyopathy, unspecified; J45.901 Unspecified asthma with (acute) exacerbation; E66.9 Obesity, unspecified; Z68.35 Body mass index [BMI] 35.0-35.9, adult; D64.9 Anemia, unspecified; E78.5 Hyperlipidemia, unspecified; I25.10 Atherosclerotic heart disease of native coronary artery without angina pectoris
CPT/HCPCS: 36415; 36600; 71045; 71250; 80048; 80053; 80061; 80202; 80307; 81003; 82550; 82553; 82803; 83036; 83605; 83735; 83880; 84100; 84145; 84443; 84484; 85025; 85610; 85730; 86021; 86480; 86606; 86635; 86703; 86706; 86738; 86803; 87040; 87070; 87081; 87086; 87400; 93005; 93306; 94640; 94644; 94664; 96374; 96375; 99285-25